=== PATIENT | female | born 1960 | race Caucasian/White ===

== ENCOUNTER → 2019-09-28 10:40 | Outpatient (BNVA) | payer OTHER, SELFPAY | PROVIDERS: Family Provider Nurse Practitioner; Referring Provider Dermatology; Visit Provider Dermatology | DX: D22.9 Melanocytic nevi, unspecified (principal); L57.0 Actinic keratosis; Z85.828 Personal history of other malignant neoplasm of skin | CPT/HCPCS: 17000; 17003; 99203 ==

== ENCOUNTER 2019-12-25 13:50 | Outpatient (CLI) | payer OTHER, SELFPAY ==
--- NOTE | 2019-12-25 13:53 | MM_ITS ---
WS: [id number] BILATERAL DIGITAL SCREENING MAMMOGRAPHY WITH CAD CLINICAL INFORMATION: SCREENING HISTORY: Screening mammogram. No current complaints. COMPARISON: [id number] TECHNIQUE: Bilateral CC and MLO views. FINDINGS: The breasts are composed of heterogeneous fibroglandular density tissue, which can limit the detectio n of small underlying mass lesions. No suspicious mass, asymmetry, calcifications, or architectural d istortion. No evidence of malignancy. MM/[id number] IMPRESSION: BI-RADS: 1-Negative FOLLOW UP: 1 Year Follow-up Recommend return to annual screening mammography.
== END 2019-12-25 13:51 | disposition home or self-care (01) ==
LOC: RADSHAW 13:52
PROVIDERS: PCP Nurse Practitioner Family; Visit Provider Nurse Practitioner Family
DX: Z12.31 Encounter for screening mammogram for malignant neoplasm of breast (principal)
CPT/HCPCS: 77067

== ENCOUNTER 2021-02-14 08:15 | Outpatient (CLI) | payer OTHER, SELFPAY ==
--- NOTE | 2021-02-14 08:21 | MM_ITS ---
WS: [id number] SCREENING DIGITAL MAMMOGRAM WITH CAD HISTORY: SCREENING COMPARISON: 12/25/2019, 07/26/2017 and 09/08/2014 Bilateral CC and MLO views submitted. Computer aided detection analyzed. Breast composition: The breasts are extremely dense, which lowers the sensitivity of mammography. Area of very subtle architectural distortion in the medial posterior LEFT breast. I believe this loca lizes to the superior breast on the MLO projection. The remaining breasts are negative. MM/[id number] IMPRESSION: BI-RADS: 0-Incomplete: Need additional imaging evaluation FOLLOW UP: Need Additional Imaging LEFT breast: Spot compression views (CC and MLO). True ML. Ultrasound to follow if abnormality persists.
== END 2021-02-14 08:16 | disposition home or self-care (01) ==
LOC: RADSHAW 08:19
PROVIDERS: PCP Nurse Practitioner Family; Visit Provider Nurse Practitioner Family
DX: Z12.31 Encounter for screening mammogram for malignant neoplasm of breast (principal)
CPT/HCPCS: 77067

== ENCOUNTER 2021-03-07 13:14 | Outpatient (CLI) | payer OTHER, SELFPAY ==
--- NOTE | 2021-03-07 13:25 | MM_ITS ---
WS: [id number] ADDITIONAL VIEWS LEFT MAMMOGRAM LEFT BREAST ULTRASOUND HISTORY: Asymmetry upper-outer quadrant LEFT breast on the screening mammogram from 02/14/2021. COMPARISON: 02/14/2021, 12/25/2019, 07/26/2017 LEFT MAMMOGRAM: Spot compression views and true ML. Breasts are heterogeneously dense. Dense asymmetry in the upper outer quadrant with no architectural distortion. Mild improvement since the prior study. Ultrasound will be performed to further assess un derlying abnormality. LEFT BREAST ULTRASOUND 2-D and color Doppler imaging submitted. Ultrasound is directed to the upper outer quadrant of the LEFT breast. There is very dense fibrogland ular tissue. No shadowing or mass. No soft tissue thickening or distortion. MM/[id number] IMPRESSION: BI-RADS: 2-Benign FOLLOW UP: 1 Year Follow-up Asymmetry in the upper outer quadrant LEFT breast corresponds to very dense fib roglandular tissue.
== END 2021-03-07 13:15 | disposition home or self-care (01) ==
LOC: RADSHAW 13:19
PROVIDERS: PCP Nurse Practitioner Family; Visit Provider Nurse Practitioner Family
DX: R92.8 Other abnormal and inconclusive findings on diagnostic imaging of breast (principal); N64.89 Other specified disorders of breast
CPT/HCPCS: 76642; 77065